=== PATIENT | female | born 1950 | race Caucasian/White ===

== ENCOUNTER 2016-11-26 05:49 | Day surgery (SDC) | payer OTHER ==
[2016-11-26] MEDS ORDERED: Lactated Ringers 1,000 ML PRIMARY IV ONE (06:01)
[2016-11-26] MEDS ORDERED: ceFAZolin Inj 2gm (Premix) 50 ML IV ONE (06:01)
[2016-11-26] MEDS ORDERED: LIDOCAINE W/ SODIUM BICARB 0.5 ML SYR ONE (06:01)
[2016-11-26] MEDS ORDERED: MIDAZOLAM 5 MG/1 ML ONE (06:51)
[2016-11-26] MEDS ORDERED: fentaNYL Inj 100 MCG/2 ML VIAL ONE (06:51)
[2016-11-26] MEDS ORDERED: DEXAMETHASONE PF 10 MG/1 ML VIAL ONE (06:52)
[2016-11-26] MEDS ORDERED: MEPIVACAINE HCL/PF 20 MG/1 ML IV ONE (06:55)
[2016-11-26] MEDS ORDERED: BUPIVACAINE 0.5% W/EPI MPF -30 ML VIAL IV ONE (06:55)
--- NOTE | 2016-11-26 07:11 | CRNA.PROCE ---
Nerve Block Documentation - - Safety Measures: Time Out Taken, Site Verified - - Type of Nerve Block Used: Left Popliteal Fossa Block (Primary anesthetic for Left foot procedure.) Position for Nerve Block: Prone Moniters Used During Block: EKG, SPO2, NIBP Oxygen Sumpplented: Yes Sedation Used - Enter Amount in Comment Field: Midazolam (mg): Yes (3), Fentanyl (mcg): Yes (50) Skin Prep Used: ChloroPrep (Twice) Draped: No Technique: Nerve Stimulator Nerve Block Needle Used: MeetMoi 100 mm Stimulation Hz: 1 Stimulation Staring mA: 1.8 Stimulation Ending mA: 0.6 Local Anesthetic - Enter Amt in Comment Field: 0.5 % Bupivicaine with Epinephrine 1:200,000 (mL): Yes (25 ml in 3 ml increments), 2 % Mepivacaine (mL) : Yes (10 ml in 3 ml increments) Additives to Nerve Blocks: Dexamethasone (mL): Yes (10)
[2016-11-26 07:12] VITALS: RESP 19
[2016-11-26] MEDS ORDERED: BUPivacaine Inj 0.5% PF (5mg/ml) 10ml vial ONE ×3 (08:55→09:46)
[2016-11-26] MEDS ORDERED: LIDOCAINE 2% 20 MG/ML - 20 ML VIAL ONE (08:55)
[2016-11-26] MEDS ORDERED: NORMAL SALINE 10 ML SYRINGE FLUSH IVP PRN (10:35)
--- NOTE | 2016-11-26 10:58 | GEN.OPNOTE ---
Operative Report Surgeon: Dr. Naren Anderson DPM Anesthesia Type: Regional (Left leg popliteal block), Local, MAC Preoperative Diagnosis: Tarsal tunnel impingement of the left medial ankle and foot. Plantar fasciitis of the left foot, of chronic nature with acute burning and tearing pain. Postoperative Diagnosis: Same Procedure: Left foot and medial ankle Tarsal tunnel decompression, left plantar fascial release Estimated Blood Loss (mL): 7 Fluids: 800 mg LR Description of Procedure: Patient was wheeled to the operating room in the supine position under mild sedation a well-padded calf tourniquet was placed about the left lower calf the foot was then prepped scrubbed and draped in the usual aseptic manner. Foot was then prepped scrubbed and draped in the usual aseptic manner. Once anesthesia was obtained the foot was then esmarched and the ankle tourniquet was inflated. The patient had a little bit of pain on incision and local anesthesia was administered proximal to the surgery site. Attention was directed to the plantar surface of the foot where a linear incision was made over the plantar fascia was deepened using sharp and blunt dissection the plantar fascia was visualized and noticed to be extremely thick and bulky. The medial band of the plantar fascia was then transected, the middle band of plantar fasciitis was also very hypertrophied and was transected with tenotomy scissors and a 15 blade. The fascia was extremely sclerotic and hypertrophied. Once this was accomplished the area was flushed. The skin edges were then reapproximated and coapted in simple interrupted suture technique with 3-0 nylon. Attention was directed to the medial aspect of the foot over the tarsal, where a linear longitudinal incision approximately 10 cm in length was made incision was deepened using sharp and blunt dissection with care being taken to identify and retract all vital neural and vascular structures the incision was carried down to the level of the laciniate ligament which was transected with tenotomy scissors and a 15 blade was also noted to be a area of nerve entrapment in the tarsal tunnel where there was noticed to be dense connetive tissue and several areas of neurovascular impingement. The scar tissue and dense connective tissue was freed from the nerve and neurovascular bundle using tenotomy scissors, connective impingement tissue was also freed in the proximal stacey pedis. The Tourniquet was deflated to make sure that there were no bleeders. Once this was done the area was flushed and the sub-q tissue was reapproximated and coapted with 4-0 Monocryl in a running interdermal suture technique. The skin was then reinforced with 4-0 nylon in a simple interrupted suture technique. Approximately 15cc 0.5% Marcaine was injected in and about both surgery sites. A sterile dressing consisting of Xeroform gauze 4 x 4 gauze cotton cast padding and Coban was applied. The ankle tourniquet was deflated the patient had a appropriate hyperemic response. The patient tolerated the procedure well. Following a brief period of postoperative monitoring. The patient will be given postoperative instructions, the patient is to follow-up in my office in one week.
--- NOTE | 2016-11-26 12:38 | PT.PROG ---
Progress Note Progress Note: S: Pt. states she is doing well. She states she can not feel her leg at this time. Otherwise doing well. O: Treatment consisted of gait training on even surfaces and up and down 3 stairs with use of walker. Pt. was also issued a standard walker and a short medium cam boot. Pt. to be NWB at this time and was instructed in this precaution. A: Pt. completed all tasks asked of her with not difficulty. P: Discharge patient at this time due to no further orders. Hazel Santoyo, [employer]
[2016-11-26 13:41] VITALS: TEMP 98
== END 2016-11-26 12:00 | disposition home or self-care (01) ==
LOC: SDSC 05:49
PROVIDERS: ATTEND Podiatrist Foot & Ankle Surgery
DX: G57.52 Tarsal tunnel syndrome, left lower limb (principal); M72.2 Plantar fascial fibromatosis; M25.872 Other specified joint disorders, left ankle and foot
CPT/HCPCS: 28008; 28035; 97116; J0690; J2704; J3010; L4360; S0020; J0670; J1100; J2001; J2250; J3490; J7120